=== PATIENT | female | born 1965 | race Caucasian/White ===

== ENCOUNTER → 2021-07-14 | Outpatient (CLI) | payer MEDICAID | LOC: M.PUL 06-30 14:00 → M.RAD 06-30 14:50 → M.PUL 07-07 14:00 | PROVIDERS: ATTEND Family Medicine | DX: Z12.31 Encounter for screening mammogram for malignant neoplasm of breast (principal) ==

== ENCOUNTER 2021-08-03 14:10 | Emergency (ER) | payer MEDICAID ==
[~2021-08-03] VITALS: Ht 152.4 cm; Wt 54.4 kg
[2021-08-03] MEDS ORDERED: WELLBUTRIN 100100 MG PO (14:17)
[2021-08-03] MEDS ORDERED: BUSPAR30 MG PO (14:17)
[2021-08-03] MEDS ORDERED: OMEPRAZOLE 20 M20 M1 PO (14:18)
[2021-08-03 14:36] VITALS: BP 168/90
== END 2021-08-03 14:37 | disposition home or self-care (01) ==
LOC: M.ERS 14:10
DX: S01.01XA Laceration without foreign body of scalp, initial encounter (principal); Z98.51 Tubal ligation status; W01.0XXA Fall on same level from slipping, tripping and stumbling without subsequent striking against object, initial encounter; Y93.89 Activity, other specified; Y92.89 Other specified places as the place of occurrence of the external cause; Y99.8 Other external cause status